=== PATIENT | female | born 1995 | race Two or more races ===

== ENCOUNTER 2023-04-04 12:05 | Inpatient (IN) | payer BC, OTHER ==
[~2023-04-04] VITALS: Ht 157.5 cm; Wt 50.9 kg
[2023-04-04 13:21] LABS: Basophils # (auto) 0.1 10 ^3/uL (0-0.2); Eosinophils # (auto) 0.2 10 ^3/uL (0-0.8); Monocytes # (auto) 0.4 10 ^3/uL (0-1.3); Neutrophils % (auto) 70.3 % (37.0-80.0); Nucleated Red Blood Cells % 0.1 %
[2023-04-04 13:23] LABS: Basophils % (auto) 0.9 % (0.0-2.0); Eosinophils % (auto) 2.5 % (0.0-7.0); Lymphocytes # (auto) 1.4 10 ^3/uL (0.4-5.4); Lymphocytes % (auto) 20.3 % (10.0-50.0); Mean Corpuscular Hgb Conc. 34.2 g/dL (32.0-36.0); Mean Corpuscular Volume 87.5 fL (80.0-100.0); Neutrophils # (auto) 4.7 10 ^3/uL (1.6-8.6); Red Blood Cells 2.05 10^6/uL (4.0-5.20); Red Cell Distribution Width 15.3 % (11.8-14.3); White Blood Cell 6.8 10^3/uL (4.4-10.8)
[2023-04-04 13:41] LABS: Hemoglobin 6.1 g/dL (12.2-16.2)
[2023-04-04 13:47] LABS: Potassium 3.4 mmol/L (3.5-5.1)
[2023-04-04 13:54] LABS: Albumin 3.9 g/dL (3.4-5.0); BUN/Creatinine Ratio 2.2 (10.0-20.0); Bilirubin, Total 0.2 mg/dL (0.2-1.0); Calcium 8.5 mg/dL (8.5-10.1); Total Protein 7.1 g/dL (6.4-8.2)
[2023-04-04] MEDS ORDERED: LEVO125T7 PO (14:40)
[2023-04-04] MEDS ORDERED: NITROGLYCERIN 0.4 MG SL TAB SL PRN (14:45)
[2023-04-04] MEDS ORDERED: PANTOPRAZOLE 40 MG/10 ML VIAL INJ IV ONE (14:45)
[2023-04-04] MEDS ORDERED: MORPHINE SULFATE INJ 2 MG/ml SYRG IV PRN (14:45)
[2023-04-04] MEDS: POTASSIUM CHL 20MEQ/100ML 100 ML IV SCH ×2 (15:45→16:57)
[2023-04-04 15:48] LABS: Free T3 2.74 pg/mL (2.3-4.2); Free T4 (Free Thyroxine) 1.69 ng/dL (0.89-1.76)
[2023-04-04 15:49] LABS: Cholesterol 182 mg/dL (< 200); HDL Cholesterol 45 mg/dL (40-59); Triglycerides 470 mg/dL (< 150)
[2023-04-04 16:17] LABS: Urine Bacteria FEW /hpf (None Seen); Urine Blood 1+ /uL (Negative); Urine Specific Gravity 1.004 (1.001-1.035); Urine WBC 3 /hpf (0 - 5)
[2023-04-04 16:23] LABS: Alcohol, Urine < 3.0 mg/dL (0-10); Amphetamine Screen, Urine NEGATIVE (NEGATIVE); Barbiturate Scree,Urine NEGATIVE (NEGATIVE); Benzodiazephine Screen, Urine NEGATIVE (NEGATIVE); Cannabinoid Screen, Urine NEGATIVE (NEGATIVE); Cocaine Screen, Urine NEGATIVE (NEGATIVE); Opiate Scree,Urine NEGATIVE (NEGATIVE); Phencyclidine Screen, Urine NEGATIVE (NEGATIVE)
[2023-04-04 17:55] LABS: INR 0.97 (0.9-1.15)
[2023-04-04] MEDS ORDERED: ACETAMINOPHEN 500 MG TAB PO ONE (19:45)
[2023-04-04 20:06] VITALS: BP 132/89
[2023-04-04 20:30] VITALS: BP 134/94
[2023-04-04] MEDS ORDERED: LORazepam 2MG/ML-1ML VIAL IV PRN ×2 (21:30)
[2023-04-04 22:26] VITALS: BP 127/85
[2023-04-04 22:40] VITALS: BP 127/80
[2023-04-05 01:08] LABS: Hemoglobin 7.5 g/dL (12.2-16.2)
[2023-04-05 01:10] LABS: Hematocrit 21.3 % (36.0-46.0)
[2023-04-05] MEDS: LEVOTHYROXINE SODIUM 25 MCG TAB PO SCH (06:35)
[2023-04-05] MEDS: LEVOTHYROXINE SODIUM 100 MCG TAB PO SCH (06:35)
[2023-04-05 06:40] LABS: Basophils # (auto) 0.1 10 ^3/uL (0-0.2); Basophils % (auto) 0.9 % (0.0-2.0); Eosinophils # (auto) 0.3 10 ^3/uL (0-0.8); Eosinophils % (auto) 2.9 % (0.0-7.0); Hematocrit 21.9 % (36.0-46.0); Hemoglobin 7.6 g/dL (12.2-16.2); Lymphocytes # (auto) 2.7 10 ^3/uL (0.4-5.4); Lymphocytes % (auto) 29.2 % (10.0-50.0); Mean Corpuscular Hemoglobin 29.9 pg (28.0-32.0); Mean Corpuscular Hgb Conc. 34.9 g/dL (32.0-36.0); Mean Corpuscular Volume 85.7 fL (80.0-100.0); Monocytes # (auto) 0.6 10 ^3/uL (0-1.3); Monocytes % (auto) 6.6 % (0.0-12.0); Neutrophils # (auto) 5.6 10 ^3/uL (1.6-8.6); Neutrophils % (auto) 60.4 % (37.0-80.0); Red Blood Cells 2.56 10^6/uL (4.0-5.20); Red Cell Distribution Width 15.9 % (11.8-14.3); White Blood Cell 9.3 10^3/uL (4.4-10.8)
[2023-04-05 06:50] LABS: Potassium 3.6 mmol/L (3.5-5.1)
[2023-04-05 07:00] LABS: Albumin 3.6 g/dL (3.4-5.0); BUN/Creatinine Ratio 2.6 (10.0-20.0); Bilirubin, Total 0.6 mg/dL (0.2-1.0); Calcium 7.8 mg/dL (8.5-10.1); Total Protein 6.5 g/dL (6.4-8.2)
[2023-04-05] MEDS: PANTOPRAZOLE 40 MG/10 ML VIAL INJ IV SCH (09:59)
[2023-04-05] MEDS ORDERED: B-COMPLEX W/ C & FOLIC ACID(NEPHROVITE TAB) PO ONE (14:30)
[2023-04-05] MEDS: SEVELAMER 800 MG TAB PO SCH (18:46)
[2023-04-05] MEDS ORDERED: MORPHINE SULFATE INJ 2 MG/ml SYRG IM ONE (20:15)
[2023-04-05] MEDS ORDERED: SODIUM CHLORIDE 0.9% 1,000 ML IV ONE (20:15)
[2023-04-05] MEDS ORDERED: SODIUM CHLORIDE 0.9% 250 ML IV ONE (20:15)
[2023-04-05] MEDS: SODIUM BICARBONATE 650 MG TAB PO SCH (22:30)
[2023-04-05 23:09] VITALS: BP 140/99
[2023-04-06 05:00] VITALS: BP 144/92
[2023-04-06] MEDS: LEVOTHYROXINE SODIUM 100 MCG TAB PO SCH (05:52)
[2023-04-06] MEDS: LEVOTHYROXINE SODIUM 25 MCG TAB PO SCH (05:52)
[2023-04-06] MEDS: SODIUM BICARBONATE 650 MG TAB PO SCH ×3 (05:53→22:53)
[2023-04-06 06:47] LABS: Basophils # (auto) 0 10 ^3/uL (0-0.2); Basophils % (auto) 0.6 % (0.0-2.0); Eosinophils # (auto) 0.2 10 ^3/uL (0-0.8); Eosinophils % (auto) 3.5 % (0.0-7.0); Hematocrit 25.5 % (36.0-46.0); Hemoglobin 8.7 g/dL (12.2-16.2); Lymphocytes % (auto) 14.8 % (10.0-50.0); Mean Corpuscular Hemoglobin 29.6 pg (28.0-32.0); Mean Corpuscular Volume 87.1 fL (80.0-100.0); Monocytes # (auto) 0.3 10 ^3/uL (0-1.3); Monocytes % (auto) 4.8 % (0.0-12.0); Neutrophils # (auto) 5.4 10 ^3/uL (1.6-8.6); Neutrophils % (auto) 76.3 % (37.0-80.0); Nucleated Red Blood Cells % 0.1 %; Red Blood Cells 2.93 10^6/uL (4.0-5.20); Red Cell Distribution Width 15.9 % (11.8-14.3); White Blood Cell 7.1 10^3/uL (4.4-10.8)
[2023-04-06 07:09] LABS: Calcium 8.3 mg/dL (8.5-10.1); Potassium 3.6 mmol/L (3.5-5.1)
[2023-04-06 07:11] LABS: BUN/Creatinine Ratio 2.8 (10.0-20.0)
[2023-04-06] MEDS ORDERED: SODI650T PO (07:51)
[2023-04-06] MEDS ORDERED: SEVE800T8 PO (07:51)
[2023-04-06] MEDS ORDERED: LACO50TA2 PO (07:51)
[2023-04-06] MEDS ORDERED: CALC0.25 PO (07:51)
[2023-04-06 09:00] VITALS: BP 131/95
[2023-04-06] MEDS: PANTOPRAZOLE 40 MG/10 ML VIAL INJ IV SCH (09:41)
[2023-04-06] MEDS: SEVELAMER 800 MG TAB PO SCH ×3 (09:41→18:09)
[2023-04-06] MEDS: B-COMPLEX W/ C & FOLIC ACID(NEPHROVITE TAB) PO SCH (09:42)
[2023-04-06 13:00] VITALS: BP 122/79
[2023-04-06 17:00] VITALS: BP 125/75
[2023-04-06] MEDS: PIPERACILLIN-TAZOB 2.25GM 50 ML IV SCH (17:02)
[2023-04-06] MEDS ORDERED: SODIUM CHLORIDE 0.9% 500 ML IV ONE ×2 (21:15→21:30)
[2023-04-06] MEDS ORDERED: ACETAMINOPHEN 325 MG TAB PO PRN (21:30)
[2023-04-06] MEDS: ACETAMINOPHEN 325 MG TAB PO PRN (21:41)
[2023-04-06 22:00] VITALS: BP 119/80
[2023-04-06 23:19] VITALS: BP 120/78
[2023-04-07] MEDS: PIPERACILLIN-TAZOB 2.25GM 50 ML IV SCH ×3 (00:40→16:39)
[2023-04-07] MEDS: ACETAMINOPHEN 325 MG TAB PO PRN ×2 (03:54→16:40)
[2023-04-07 05:00] VITALS: BP 129/79
[2023-04-07] MEDS: LEVOTHYROXINE SODIUM 100 MCG TAB PO SCH (06:25)
[2023-04-07] MEDS: SODIUM BICARBONATE 650 MG TAB PO SCH ×3 (06:25→21:35)
[2023-04-07] MEDS: LEVOTHYROXINE SODIUM 25 MCG TAB PO SCH (06:25)
[2023-04-07 09:00] VITALS: BP 123/73
[2023-04-07] MEDS: PANTOPRAZOLE 40 MG/10 ML VIAL INJ IV SCH (10:31)
[2023-04-07] MEDS: SEVELAMER 800 MG TAB PO SCH ×3 (10:33→18:14)
[2023-04-07] MEDS: B-COMPLEX W/ C & FOLIC ACID(NEPHROVITE TAB) PO SCH (10:34)
[2023-04-07] MEDS ORDERED: KEP500T PO (11:21)
[2023-04-07 13:00] VITALS: BP 130/93
[2023-04-07 14:13] LABS: BUN/Creatinine Ratio 4.2 (10.0-20.0); Calcium 7.3 mg/dL (8.5-10.1); Potassium 3.9 mmol/L (3.5-5.1)
[2023-04-07 17:00] VITALS: BP 114/76
[2023-04-07 22:09] VITALS: BP 131/87
[2023-04-08 05:00] VITALS: BP 139/70
[2023-04-08] MEDS ORDERED: PIPERACILLIN-TAZOB 2.25GM 50 ML IV SCH (06:00)
[2023-04-08] MEDS: SODIUM BICARBONATE 650 MG TAB PO SCH ×2 (06:20→13:35)
[2023-04-08] MEDS: LEVOTHYROXINE SODIUM 100 MCG TAB PO SCH (06:21)
[2023-04-08] MEDS: LEVOTHYROXINE SODIUM 25 MCG TAB PO SCH (06:21)
[2023-04-08 06:37] LABS: BUN/Creatinine Ratio 4.6 (10.0-20.0); Calcium 7.5 mg/dL (8.5-10.1); Potassium 3.8 mmol/L (3.5-5.1)
[2023-04-08 08:05] VITALS: BP 137/86
[2023-04-08 09:00] VITALS: BP 137/86
[2023-04-08] MEDS: SEVELAMER 800 MG TAB PO SCH ×2 (09:22→12:39)
[2023-04-08] MEDS: B-COMPLEX W/ C & FOLIC ACID(NEPHROVITE TAB) PO SCH (09:57)
[2023-04-08] MEDS: PANTOPRAZOLE 40 MG/10 ML VIAL INJ IV SCH (09:57)
[2023-04-08] MEDS ORDERED: AUG875T PO (10:32)
[2023-04-08 13:00] VITALS: BP 136/86
[2023-04-08 13:06] VITALS: BP 137/86
== END 2023-04-08 14:25 | disposition home or self-care (01) | DRG 100 ==
LOC: EDBD 12:05 → ER 12:05 → TELE 14:45 → TELE-WESTW 04-05 21:37
PROVIDERS: ADMIT Registered Nurse; ATTEND Internal Medicine
PROC: 30233N1 Transfusion of Nonautologous Red Blood Cells into Peripheral Vein, Percutaneous Approach (ICD-10-PCS; principal; 2023-04-04)
DX: G40.409 Other generalized epilepsy and epileptic syndromes, not intractable, without status epilepticus (principal); N18.6 End stage renal disease; C95.90 Leukemia, unspecified not having achieved remission; N17.9 Acute kidney failure, unspecified; E46 Unspecified protein-calorie malnutrition; I12.0 Hypertensive chronic kidney disease with stage 5 chronic kidney disease or end stage renal disease; E78.5 Hyperlipidemia, unspecified; D63.1 Anemia in chronic kidney disease; Z20.822 Contact with and (suspected) exposure to COVID-19; E87.6 Hypokalemia; E89.0 Postprocedural hypothyroidism; F17.200 Nicotine dependence, unspecified, uncomplicated; M89.8X9 Other specified disorders of bone, unspecified site; C73 Malignant neoplasm of thyroid gland; Z99.2 Dependence on renal dialysis; Z85.850 Personal history of malignant neoplasm of thyroid; Z88.1 Allergy status to other antibiotic agents; Z79.899 Other long term (current) drug therapy; Z68.20 Body mass index [BMI] 20.0-20.9, adult
CPT/HCPCS: 36415; 70450; 70551; 71045; 80048; 80053; 80061; 80307; 81001; 82270; 82962; 83036; 83615; 84439; 84443; 84481; 85014; 85018; 85025; 85045; 85049; 85384; 85610; 86850; 86900; 86901; 86920; 87040; 87081; 87086; 87426; 95819; C9113; G0378; J2543; J3480; J7060